=== PATIENT | female | born 1990 | race Caucasian/White ===

== ENCOUNTER 2021-02-20 16:18 | Outpatient (CLI) | payer OTHER ==
[2021-02-20 17:11] VITALS: BP 128/68; PULSE 96; RESP 16; TEMP 98.5
--- NOTE | 2021-03-23 11:23 | P.MSEPDOC ---
Presenting Problems - Arrival Data Date of Arrival on Unit: 02/20/21 Time of Arrival on Unit: 16:00 Mode of Transport: Wheelchair - Complaint OB-Reason for Admission/Chief Complaint: Other Comment: c/o missed a step twisted rt ankle, and fell on rt side. Medical History - Information : 3 Para: 2 Term: 1 : 1 Abortions: Spontaneous or Elective: 0 Number of Living Children: 2 - Gestational Age Gestational Age by BUFFY (wks/days): 28 Weeks and 1 Days - History Complications: Prior , Other Comment: u/s for growth. last one was wednesday. no problems Review of Systems - Review of Systems Constitutional: No problems Breast: No problems ENT: No problems Cardiovascular: No problems Respiratory: No problems Gastrointestinal: No problems Genitourinary: No problems Musculoskeletal: No problems Neurological: No problems Skin: No problems Vital Signs - Temperature Temperature: 98.5 F Temperature Source: Oral - Pulse Right Radial Pulse Rate: 96 Pulse Assessment Method: Automatic Cuff - Respirations Respiratory Rate: 16 Oxygen Delivery Method: Room Air O2 Sat by Pulse Oximetry: 97 - Blood Pressure Right Arm Blood Pressure: 128/68 Blood Pressure Mean: 88 Blood Pressure Source: Automatic Cuff Medical Screen Scoring - Assessment - Baby A Baseline FHR: 120 Physician Notification - Physician Notified Physician Notified Date: 02/20/21 Physician Notified Time: 16:00 Physician: Vimal Bass Order Received: Yes - Notification Comment Comment: has appt with dr nielsen 03/05/21, discharge instructions given to return. to see er forankle. ice packs on rt ankle Disposition - Disposition OB Disposition: Transfer to other dept./facility, Written follow up instructions reviewed Transferred to:: er for evaluation of ankle Discharge Date: 02/20/21 Discharge Time: 17:00 I agree with the RN Medical Screening Exam: Yes Physician's MSE Comment: I have neither seen nor examined the patient. Case reviewed; plan agreed upon as documented in EMR&OBIX.: Yes Diagnosis: RELATED CONDITIONS, UNSPECIFIED, THIRD TRIMESTER
== END 2021-02-20 17:00 | disposition home or self-care (01) ==
LOC: FBPOP 16:18
PROVIDERS: ATTEND Obstetrics & Gynecology
DX: O26.893 Other specified pregnancy related conditions, third trimester (principal); Z3A.28 28 weeks gestation of pregnancy
CPT/HCPCS: 59025; 99213

== ENCOUNTER 2021-02-20 17:02 | Emergency (ER) | payer OTHER ==
[2021-02-20 17:22] VITALS: RESP 18
--- NOTE | 2021-02-20 18:16 | XR ---
EXAMINATION TYPE: XR foot complete RT DATE OF EXAM: 02/20/2021 CLINICAL HISTORY: pain TECHNIQUE: Frontal, lateral and oblique images of the right foot are obtained. COMPARISON: None. FINDINGS: There is no acute fracture/dislocation evident. The joint spaces appear within normal guido its. The overlying soft tissue appears unremarkable. IMPRESSION: There is no acute fracture or dislocation. ICD 10 NO FRACTURE, INITIAL EVALUATION
--- NOTE | 2021-02-20 18:16 | XR ---
EXAMINATION TYPE: XR ankle complete RT DATE OF EXAM: 02/20/2021 COMPARISON: NONE HISTORY: Pain TECHNIQUE: Frontal, lateral and oblique images of the right ankle are obtained. COMPARISON: None. FINDINGS: There is no acute fracture/dislocation evident. The joint spaces appear within normal guido its. The overlying soft tissue appears unremarkable. IMPRESSION: There is no acute fracture or dislocation seen.
[2021-02-20] MEDS ORDERED: ACETAMINOPHEN TAB 500 MG TAB PO STA (19:01)
--- NOTE | 2021-02-20 19:02 | ED ---
General Adult HPI - General Chief complaint: Extremity Injury, Lower Stated complaint: R ankle pain, 28 weeks , sent by LD Time Seen by Provider: 02/20/21 18:28 Source: patient Mode of arrival: wheelchair Limitations: no limitations - History of Present Illness Initial comments: 30-year-old female currently 28 weeks with a past medical history of hypertension presents to the emergency room for a chief complaint of right ankle pain. Patient reports that she missed a step on her porch and fell off to the side. Patient states she landed on her right side. She injured her right ankle. She has no other complaints. She did not hit her head or neck. She denies chest back or abdominal pain. Patient did have an ultrasound performed up stairs at [facility] already and was cleared from that aspect. Patient is here for evaluation of her right foot and ankle.Patient has no other complaints at this time including shortness of breath, chest pain, abdominal pain, nausea or vomiting, headache, or visual changes. - Related Data Home Medications Medication Instructions Recorded Confirmed Aspirin [Adult Low Dose Aspirin EC] 81 mg PO DAILY 02/20/21 02/20/21 Doxylamine Succinate [Unisom] 25 mg PO HS 02/20/21 02/20/21 Pnv,Calcium 72/Iron/Folic Acid 1 tab PO DAILY 02/20/21 02/20/21 [ Plus Tablet] Allergies Allergy/AdvReac Type Severity Reaction Status Date / Time No Known Allergies Allergy Verified 02/20/21 17:18 Review of Systems ROS Statement: Those systems with pertinent positive or pertinent negative responses have been documented in the HPI. ROS Other: All systems not noted in ROS Statement are negative. Past Medical History Past Medical History: Hypertension History of Any Multi-Drug Resistant Organisms: None Reported Past Surgical History: Section, Orthopedic Surgery Past Psychological History: No Psychological Hx Reported Smoking Status: Never smoker Past Alcohol Use History: None Reported Past Drug Use History: None Reported General Exam Limitations: no limitations General appearance: alert, in no apparent distress Head exam: Present: atraumatic, normocephalic, normal inspection Eye exam: Present: normal appearance, PERRL, EOMI. Absent: scleral icterus, conjunctival injection, periorbital swelling ENT exam: Present: normal exam, mucous membranes moist Neck exam: Present: normal inspection, full ROM. Absent: tenderness, meningismus, lymphadenopathy Respiratory exam: Present: normal lung sounds bilaterally. Absent: respiratory distress, wheezes, rales, rhonchi, stridor Cardiovascular Exam: Present: regular rate, normal rhythm, normal heart sounds. Absent: systolic murmur, diastolic murmur, rubs, gallop, clicks GI/Abdominal exam: Present: soft, normal bowel sounds, other (gravid). Absent: distended, tenderness, guarding, rebound, rigid Extremities exam: Present: full ROM (Full ROM right foot and ankle.), tenderness (Notice the anterior ankle. No tenderness of the fifth metatarsal or lateral or medial malleoli.), normal capillary refill (Capillary refill less than 2 seconds, DVT. Less right lower extremity), other (Sensation intact on the right lower extremity). Absent: pedal edema, joint swelling (There is no edema or ecchymosis noted of the right foot), calf tenderness Course Vital Signs 02/20/21 17:19 Temperature 97.8 F Pulse Rate 104 H Respiratory 18 Rate Blood Pressure 114/63 O2 Sat by Pulse 98 Oximetry Medical Decision Making - Medical Decision Making X-rays of the right foot and ankle are negative today in the ER. Patient was wrapped with an Arnold wrap. She is able to and lately on the right foot. Patient was discharged home to follow up with primary care. If symptoms continue he may benefit to follow-up with orthopedics for repeat x-rays. She will return here for any worsening symptoms. She was directed to take Tylenol for pain. Disposition Clinical Impression: Right ankle pain Disposition: HOME SELF-CARE Condition: Good Instructions (If sedation given, give patient instructions): Ankle Sprain (ED) Additional Instructions: Please take Tylenol for pain. Rest ice and elevate the right ankle. Use Arnold wrap as needed. Follow-up with your doctor. Return to the emergency room for any worsening symptoms. Is patient prescribed a controlled substance at d/c from ED?: No Referrals: Ede Rodriguez DO [Doctor of Osteopathic Medicine] - 1-2 days Time of Disposition: 19:01
[2021-02-20 19:10] VITALS: BP 118/64; PULSE 96; TEMP 98
== END 2021-02-20 19:07 | disposition home or self-care (01) ==
LOC: EC 17:02
DX: O99.893 Other specified diseases and conditions complicating puerperium (principal); M25.571 Pain in right ankle and joints of right foot; O10.913 Unspecified pre-existing hypertension complicating pregnancy, third trimester; W10.9XXA Fall (on) (from) unspecified stairs and steps, initial encounter; Z79.82 Long term (current) use of aspirin; Z3A.28 28 weeks gestation of pregnancy
CPT/HCPCS: 99283

== ENCOUNTER → 2021-03-04 | Outpatient (CLI) | payer OTHER ==
--- NOTE | 2021-03-04 11:23 | US ---
EXAMINATION TYPE: US venous doppler duplex LE LT DATE OF EXAM: 03/04/2021 11:09 AM COMPARISON: NONE CLINICAL HISTORY: M79.662 PAIN IN LT LOWER LIMB. SIDE PERFORMED: Left TECHNIQUE: The lower extremity deep venous system is examined utilizing real time linear array sonog jose d with graded compression, doppler sonography and color-flow sonography. VESSELS IMAGED: Common Femoral Vein Deep Femoral Vein Greater Saphenous Vein * Femoral Vein Popliteal Vein Small Saphenous Vein * Proximal Calf Veins (* superficial vessels) Left Leg: Negative for DVT IMPRESSION: 1. No evidence of deep venous thrombosis of the left lower extremity veins.
== END ==
LOC: RADUSWWP 10:52
PROVIDERS: ATTEND Obstetrics & Gynecology Obstetrics
DX: M79.662 Pain in left lower leg (principal)

== ENCOUNTER 2021-03-26 11:56 | Outpatient (CLI) | payer OTHER ==
[2021-03-26 12:33] LABS: Amorphous Sediment,Urine Rare /hpf; Appearance,Urine Turbid (Clear); Bacteria,Urine Few /hpf; Bilirubin,Urine Negative (Negative); Blood,Urine Negative (Negative); Color,Urine Light Yellow; Glucose,Urine (UA) Negative (Negative); Ketones,Urine Trace (Negative); Leukocyte Esterase,Urine Negative (Negative); Mucus,Urine Rare /hpf; Nitrite,Urine Negative (Negative); PH, Urine 7.5 (5.0-8.0); Protein,Urine Negative (Negative); RBC,Urine 1 /hpf (0-5); Specific Gravity,Urine 1.013 (1.001-1.035); Squamous Epithelial Cell,Urine 9 /hpf (0-4); Urobilinogen,Urine <2.0 mg/dL (<2.0); WBC,Urine 3 /hpf (0-5)
[2021-03-26] MEDS ORDERED: ACETAMINOPHEN TAB 500 MG TAB PO STA (13:13)
[2021-03-26 14:03] VITALS: BP 123/71; PULSE 90; RESP 16; TEMP 96.7
--- NOTE | 2021-03-27 16:40 | P.MSEPDOC ---
Presenting Problems - Arrival Data Date of Arrival on Unit: 03/26/21 Time of Arrival on Unit: 11:56 Mode of Transport: Ambulatory - Complaint OB-Reason for Admission/Chief Complaint: Possible Onset of Labor Comment: cramping and back pain irregular Medical History - Information : 3 Para: 2 Term: 1 : 1 Abortions: Spontaneous or Elective: 0 Number of Living Children: 2 - Gestational Age Gestational Age by BUFFY (wks/days): 33 Weeks and 0 Days - History Complications: Prior Review of Systems - Review of Systems Constitutional: No problems Breast: No problems ENT: No problems Cardiovascular: No problems Respiratory: No problems Gastrointestinal: No problems Genitourinary: No problems Musculoskeletal: No problems Neurological: No problems Skin: No problems Vital Signs - Temperature Temperature: 96.7 F Temperature Source: Oral - Pulse Right Brachial Pulse Rate: 90 Pulse Assessment Method: Automatic Cuff - Respirations Respiratory Rate: 16 Oxygen Delivery Method: Room Air O2 Sat by Pulse Oximetry: 97 - Blood Pressure Right Arm Sitting Blood Pressure: 123/71 Blood Pressure Mean: 88 Blood Pressure Source: Automatic Cuff Medical Screen Scoring - Cervical Exam Dilation (cm): 0 Effacement (%): 0 Station: -3 - Uterine Contractions Frequency From (mins): 15 Duration From (seconds): 50 Intensity: Mild Resting: Soft to palpation - Assessment - Baby A Baseline FHR: 125 Heart Rate - NICHD Category: Category I (Normal) NST: Reactive Maternal Triage Index - Maternal Triage Index Presenting for scheduled procedure w/no complaint: No - Stat/Priority 1 Stat Priority 1: No - Urgent/Priority 2 Urgent Priority 2: Yes Provider Notified: Adriana Aggarwal Provider Notified Time: 13:30 Criteria Met for Priority 2: <34 weeks complaint of contractions Disposition - Disposition OB Disposition: Triage, Discharge to home, Written follow up instructions reviewed Discharge Date: 03/26/21 Discharge Time: 13:40 I agree with the RN Medical Screening Exam: Yes Case reviewed; plan agreed upon as documented in EMR&OBIX.: Yes Comments: Patient was not seen or examined by myself Diagnosis: FALSE LABOR BEFORE 37 COMPLETED WEEKS OF GEST, THIRD TRI
== END 2021-03-26 13:40 | disposition home or self-care (01) ==
LOC: FBPOP 11:56
PROVIDERS: ATTEND Obstetrics & Gynecology Obstetrics
DX: O47.03 False labor before 37 completed weeks of gestation, third trimester (principal); Z3A.33 33 weeks gestation of pregnancy
CPT/HCPCS: 59025; 81001; 99213